=== PATIENT | male | born 1965 | race Two or more races ===

== ENCOUNTER 2019-11-27 07:37 | Inpatient (IN) | payer MEDICARE, OTHER ==
[~2019-11-27] VITALS: Ht 172.7 cm; Wt 113.4 kg
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
[2019-11-28 08:00] VITALS: BP 137/79
[2019-11-28] MEDS ORDERED: MAGNESIUM HYDROXIDE 30 ML UDC PO PRN ×2 (08:30)
[2019-11-28] MEDS ORDERED: BLOOD SUGAR DIAGNOSTIC 1 EACH STRIP IN ONE ×2 (08:30)
[2019-11-28] MEDS ORDERED: MAG HYDROX/AL HYDROX/SIMETH 30 ML UDC PO PRN ×2 (08:30)
[2019-11-28] MEDS ORDERED: ACETAMINOPHEN 325 MG TABLET PO PRN ×2 (08:30)
[2019-11-28] MEDS ORDERED: QUET200T PO (08:38)
[2019-11-28] MEDS ORDERED: QUET25TA PO (08:38)
[2019-11-28] MEDS ORDERED: CARV6.25 PO (08:38)
[2019-11-28] MEDS ORDERED: FLUT200B IH (08:38)
[2019-11-28] MEDS ORDERED: TEMA15CA PO (08:38)
[2019-11-28] MEDS ORDERED: TORS20TA3 PO (08:38)
[2019-11-28] MEDS ORDERED: SPIR25TA6 PO (08:38)
[2019-11-28] MEDS ORDERED: ALBU2.5V13 IH (08:38)
[2019-11-28] MEDS ORDERED: FLUT10.62 IH (08:38)
[2019-11-28] MEDS: OLANZAPINE 5 MG TABLET PO SCH (10:30)
[2019-11-28 16:00] VITALS: BP 158/82
[2019-11-28] MEDS ORDERED: ALBUTEROL FS 2.5 MG/0.5 ML VIAL.NEB IH PRN (17:30)
[2019-11-28] MEDS: LORAZEPAM 0.5 MG TABLET PO PRN ×2 (18:49→21:31)
--- NOTE | 2019-11-28 18:49 | NUR ---
RN NOTE: ANXIETY PT C/O INCREASING ANXIEYT. MEDICATED WITH ATIVAN 0.5 MG PO PRN
[2019-11-28 19:36] VITALS: BP 159/96
[2019-11-28] MEDS: TEMAZEPAM 7.5 MG CAPSULE PO PRN (22:31)
[2019-11-29 08:00] VITALS: BP 153/99
[2019-11-29 08:34] LABS: ALBUMIN 3.6 g/dL (3.4-5.0); BILIRUBIN,TOTAL 0.5 mg/dL (0.2-1.0); CALCIUM, SERUM 8.7 mg/dL (8.5-10.1); CREATININE 0.5 mg/dL (0.6-1.3); POTASSIUM 3.8 mmol/L (3.5-5.1)
[2019-11-29] MEDS: SPIRONOLACTONE 25 MG TABLET PO SCH (08:47)
[2019-11-29] MEDS: FLUTICASONE/VILANTEROL 1 EACH BLST.W.DEV IH SCH (08:47)
[2019-11-29] MEDS: CARVEDILOL 6.25 MG TABLET PO SCH ×2 (08:47→16:19)
[2019-11-29] MEDS: TORSEMIDE 20 MG TABLET PO SCH (08:48)
[2019-11-29 09:24] LABS: CHOLESTEROL 104 mg/dL (<200); HDL CHOLESTEROL 36 mg/dL (40-60); LDL 57 mg/dL (0-99); TRIGLYCERIDES 62 mg/dL (30-150)
--- NOTE | 2019-11-29 11:00 | NUR ---
Family Contact: SW called the pts ex , [place] ([phone]), and left a voicemail stating that the SW would like to discuss the pts treatment.
[2019-11-29] MEDS: OLANZAPINE 5 MG TABLET PO SCH (11:18)
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
--- NOTE | 2019-11-29 12:28 | NUR ---
Initial Discharge Plan: Pt currently resides in his home located at [address] [place] [address]; ([phone]). Per pt, he would like to return to his home to pack before moving. MAKI will work with the MD and the pt regarding appropriate discharge planning. SW will form a safe and proper discharge.
[2019-11-29] MEDS: LORAZEPAM 0.5 MG TABLET PO PRN ×2 (13:02→19:56)
[2019-11-29 16:00] VITALS: BP 139/84
--- NOTE | 2019-11-29 18:33 | NUR ---
RN Closing note Patient sitting on bed, infante no appears anxiety or restlessness. Pt took all scheduled medications with compliance during day shift. Skin is warm ot touch, respiratory even and uncolored on room air, no distress observed. Kept bed in locked, side rails up x 2, will endorse casino shift manager and continue to monitor for safety.
--- NOTE | 2019-11-29 19:58 | NUR ---
RN NOTE: PT REQUESTED FOR ATIVAN FOR ANXIETY. PT WAS GETTING AGITATED, RESTLESS AND DISORGANIZED. ATIVAN 0.5MG 1 TAB GIVEN PO PRN ORDERED AT 1956. WILL CONTINUE TO MONITOR.
[2019-11-29 20:00] VITALS: BP 111/58
[2019-11-29] MEDS ORDERED: OLANZAPINE 10 MG TABLET PO SCH (20:00)
[2019-11-29] MEDS: TEMAZEPAM 7.5 MG CAPSULE PO PRN (21:27)
--- NOTE | 2019-11-30 06:31 | NUR ---
GPS RN CLOSING NOTES: PT IS SLEEPING ON BED, RESPIRATION EVEN AND UNLABORED WITH EQUAL RISE AND FALL OF THE CHEST. ALL CARE NEEDS, TREATMENT AND MEDICATIONS ADMINISTERED ANTICIPATED PER ORDER. PT IS MED COMPLIANT. THIS SHIFT PT WAS GIVEN ATIVAN 0.5MG 1 TAB AND RESTORIL 7.5MG 1 TAB PO PRN ORDERED. SAFETY PRECAUTION TAKEN. BED IN LOWEST LOCKED POSITION, SIDE RAILS UPX2, CALL LIGHT WITHIN REACH. WILL CONTINUE TO MONITOR [id number] AND Q1HR PER GPS PROTOCOL FOR SAFETY, MOOD AND BEHAVIOR AND ENDORSE TO AM SHIFT.
[2019-11-30 08:00] VITALS: BP 131/78
--- NOTE | 2019-11-30 08:40 | NUR ---
GIVEN ATIVAN FOR NERVES.
[2019-11-30] MEDS: FLUTICASONE/VILANTEROL 1 EACH BLST.W.DEV IH SCH (08:45)
[2019-11-30] MEDS: TORSEMIDE 20 MG TABLET PO SCH (08:46)
[2019-11-30] MEDS: SPIRONOLACTONE 25 MG TABLET PO SCH (08:48)
[2019-11-30] MEDS: CARVEDILOL 6.25 MG TABLET PO SCH ×2 (08:48→18:33)
[2019-11-30] MEDS: LORAZEPAM 0.5 MG TABLET PO PRN ×2 (08:49→15:26)
[2019-11-30] MEDS ORDERED: OLANZAPINE 5 MG TABLET PO SCH (09:00)
--- NOTE | 2019-11-30 12:41 | NUR ---
Family Contact: Pts ex , Ca ([phone]), called the SW and stated that the pt cannot return to their home and that she is going to pack of his belongings into an RV that she will park somewhere for the pt to live in off of their property.
[2019-11-30] MEDS: OLANZAPINE 5 MG TABLET PO SCH (14:06)
--- NOTE | 2019-11-30 15:27 | NUR ---
RN-CO: ATIVAN 0.5 MG PO FOR AGITATION.
[2019-11-30 16:00] VITALS: BP 132/74
--- NOTE | 2019-11-30 18:33 | NUR ---
RN-CO:ASKED DR FIERRO TO INCREASE THE ATIVAN ORDER FROM 0.5 MG TO 1 MG . PATIENT IS 250 LBS NAD 5'9. 0.5 IS INSUFFICIENT TO CONTROL HIS AGITATION.
[2019-11-30 19:54] VITALS: BP 135/65
[2019-11-30 20:00] VITALS: BP 135/65
[2019-11-30] MEDS ORDERED: OLANZAPINE 10 MG TABLET PO SCH (20:00)
[2019-11-30] MEDS: OLANZAPINE 10 MG TABLET PO SCH (20:19)
[2019-11-30] MEDS: LORAZEPAM 1 MG TABLET PO PRN (22:01)
--- NOTE | 2019-11-30 22:03 | NUR ---
GPS RN NOTE: ANXIETY PATIENT VERBALIZED THAT HE IS ANXIOUS, RESTLESS, AGITATED, AGGRESSIVE & REQUESTED TO GET ATIVAN. PRN ATIVAN 1 MG 1 TAB PO GIVEN ORDERED. WILL CONTINUE TO MONITOR FOR EFFECTIVENESS.
[2019-12-01 08:00] VITALS: BP 140/79
[2019-12-01] MEDS: OLANZAPINE 5 MG TABLET PO SCH ×2 (08:40→12:12)
[2019-12-01] MEDS: CARVEDILOL 6.25 MG TABLET PO SCH ×2 (08:40→16:03)
[2019-12-01] MEDS: SPIRONOLACTONE 25 MG TABLET PO SCH (08:40)
[2019-12-01] MEDS: FLUTICASONE/VILANTEROL 1 EACH BLST.W.DEV IH SCH (08:41)
[2019-12-01] MEDS: TORSEMIDE 20 MG TABLET PO SCH (08:41)
[2019-12-01] MEDS: LORAZEPAM 1 MG TABLET PO PRN ×2 (09:52→21:13)
--- NOTE | 2019-12-01 09:53 | NUR ---
GPS/RN-NOTES NOTED PATIENT PACING IN AND OUT THE ROOM,TALKING ,MUMBLING TO SELF,GUARDED EASILY IRRITABLE WHEN APPROACH. OFFERED ATIVAN 1MG P.O GIVEN PRN ORDER. WILL CONT. MONITORING FOR SAFETY AND BEHAVIOR.
--- NOTE | 2019-12-01 11:15 | NUR ---
GPS/RN-NOTES PATIENT IN THE DAY ROOM WATCHING TV,CALM NO ACUTE DISTRESS NOTED.
[2019-12-01 16:00] VITALS: BP 114/66
[2019-12-01 19:33] VITALS: BP 120/69
[2019-12-01] MEDS: OLANZAPINE 10 MG TABLET PO SCH (19:59)
--- NOTE | 2019-12-01 21:15 | NUR ---
GPS RN NOTES: PATIENT COMPLAINED OF BEING ANXIOUS. REQUESTED OR ATIVAN MEDICATION. BP RECHECKED 148/87 HR-89. ATIVAN 1 MG GIVEN PRN ORDER. WILL NOTED EFFICACY OF MEDICATION.
[2019-12-01] MEDS: TEMAZEPAM 7.5 MG CAPSULE PO PRN (22:27)
[2019-12-01] MEDS: MINERAL OIL/PETROLATUM,WHITE 120 GM JAR TP PRN (22:29)
[2019-12-02 08:00] VITALS: BP 145/69
[2019-12-02] MEDS: OLANZAPINE 5 MG TABLET PO SCH ×2 (08:44→12:21)
[2019-12-02] MEDS: SPIRONOLACTONE 25 MG TABLET PO SCH (08:44)
[2019-12-02] MEDS: CARVEDILOL 6.25 MG TABLET PO SCH ×2 (08:45→17:03)
[2019-12-02] MEDS: FLUTICASONE/VILANTEROL 1 EACH BLST.W.DEV IH SCH (08:45)
[2019-12-02] MEDS: TORSEMIDE 20 MG TABLET PO SCH (08:46)
[2019-12-02] MEDS: MINERAL OIL/PETROLATUM,WHITE 120 GM JAR TP PRN (09:30)
[2019-12-02] MEDS: NICOTINE PATCH (21MG) 21 MG PATCH.TD24 TD SCH (09:32)
--- NOTE | 2019-12-02 11:12 | NUR ---
Family Contact: SW called the pts ex , [place] ([phone]), and discussed SNF placement but the pts stated that she feels the pt can take care of himself appropriately and will do better living in his RV than in a nursing facility.
[2019-12-02] MEDS: LORAZEPAM 1 MG TABLET PO PRN ×2 (11:45→18:58)
--- NOTE | 2019-12-02 11:45 | NUR ---
RN NOTE- PT AGITATED AND RESTLESS. PT RESPONDING TO INTERNAL STIMULUS AND PARANOID. ATIVAN 1 MG GIVEN AT THIS TIME.
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
[2019-12-02] MEDS ORDERED: OLANZAPINE 5 MG TABLET PO ONE (14:30)
[2019-12-02 16:07] VITALS: BP 112/90
--- NOTE | 2019-12-02 18:58 | NUR ---
GPS/RN-NOTES PATIENT PACING IN THE HALLWAY,MUMBLING AND TALKING TO SELF,REQUESTING FOR ATIVAN. STATED" ATIVAN HELPS ME". ATIVAN 1MG P.O GIVEN PRN ORDER. WILL ENDORSE TO INCOMING NURSE TO CONTINUE MONITORING FOR SAFETY AND BEHAVIOR AND CONTINUITY OF CARE.
[2019-12-02 20:00] VITALS: BP 148/75
--- NOTE | 2019-12-02 20:00 | NUR ---
GPS RN NOTE RECEIVED PATIENT AMBULATING IN & OUT OF HIS ROOM, STEADY, A & O X 2-3, FORGETFUL, DISORGANIZED, DELUSIONAL, UNPREDICTABLE, ANXIOUS, RESTLESS, NEEDY, DEMANDING. PARANOID. DENIES SI/HI AT THIS TIME. PATIENT NOTED TALKING TO HIMSELF, WHEN APPROACHED, PT. STATED," I AM MEDITATING." PATIENT SITS ON THE FLOOR SAYING THAT HE WANTS TO MEDITATE SITTING ON THE FLOOR. REDIRECTED PATIENT TO BED. SNACKS & FLUIDS PROVIDED & TOLERATED WELL. NO ACUTE DISTRESS NOTED. ENVIRONMENTAL SAFETY CHECKS DONE. BED IN LOW LOCKED POSITION. WILL CONTINUE TO MONITOR Q 15 MIN. FOR SAFETY, MOOD & BEHAVIOR.
[2019-12-02 20:20] VITALS: BP 148/75
[2019-12-02] MEDS: OLANZAPINE 10 MG TABLET PO SCH (20:29)
[2019-12-02 22:15] VITALS: BP 141/78
[2019-12-02] MEDS: TEMAZEPAM 7.5 MG CAPSULE PO PRN (22:21)
--- NOTE | 2019-12-02 22:23 | NUR ---
GPS RN NOTE: INSOMNIA PATIENT VERBALIZED THAT HE IS UNABLE TO SLEEP & WANTED TO TAKE RESTORIL. PRN RESTORIL 7.5 MG 1 CAP PO GIVEN. WILL CONTINUE TO MONITOR FOR EFFECTIVENESS.
[2019-12-03 08:00] VITALS: BP 140/88
[2019-12-03] MEDS: NICOTINE PATCH (21MG) 21 MG PATCH.TD24 TD SCH (08:18)
[2019-12-03] MEDS: SPIRONOLACTONE 25 MG TABLET PO SCH (08:19)
[2019-12-03] MEDS: OLANZAPINE 5 MG TABLET PO SCH ×2 (08:19→12:12)
[2019-12-03] MEDS: CARVEDILOL 6.25 MG TABLET PO SCH ×2 (08:19→16:45)
[2019-12-03] MEDS: FLUTICASONE/VILANTEROL 1 EACH BLST.W.DEV IH SCH (08:23)
[2019-12-03] MEDS: TORSEMIDE 20 MG TABLET PO SCH (08:23)
[2019-12-03] MEDS: LORAZEPAM 1 MG TABLET PO PRN ×2 (09:32→20:50)
--- NOTE | 2019-12-03 09:34 | NUR ---
GPS/RN-NOTES PATIENT APPROACH THE PERSONAL CARE HOME ADMINISTRATOR AND REQUESTING FOR ATIVAN STATED" I NEED ATIVAN FOR MY ANXIETY". ATIVAN 1MG P.O GIVEN PRN ORDER. WILL CONT. MONITORING FOR SAFETY AND BEHAVIOR.
--- NOTE | 2019-12-03 10:35 | NUR ---
GPS/RN-NOTES PATIENT IN THE DAY ROOM READING MAGAZINE,CALM,NO ACUTE DISTRESS NOTED.
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
[2019-12-03 16:00] VITALS: BP 135/72
[2019-12-03 20:00] VITALS: BP 129/82
[2019-12-03] MEDS: OLANZAPINE 10 MG TABLET PO SCH (20:13)
--- NOTE | 2019-12-03 20:52 | NUR ---
GPS-RN NOTE: ANXIETY PATIENT C/O FEELING ANXIOUS AND REQUESTING FOR ATIVAN. ADMINISTERED ATIVAN 1MG PO ORDERED. WILL CONTINUE TO MONITOR FOR SAFETY AND BEHAVIOR.
[2019-12-03] MEDS: TEMAZEPAM 7.5 MG CAPSULE PO PRN (23:16)
--- NOTE | 2019-12-03 23:16 | NUR ---
GPS RN NOTE: INSOMNIA PATIENT C/O UNABLE TO SLEEP. ADMINISTERED RESTORIL 7.5 MG 1 CAP PO GIVEN. WILL CONTINUE TO MONITOR FOR EFFECTIVENESS.
[2019-12-04] MEDS: LORAZEPAM 1 MG TABLET PO PRN ×2 (07:14→16:59)
[2019-12-04 08:00] VITALS: BP 141/70
[2019-12-04] MEDS: NICOTINE PATCH (21MG) 21 MG PATCH.TD24 TD SCH (09:09)
[2019-12-04] MEDS: SPIRONOLACTONE 25 MG TABLET PO SCH (09:10)
[2019-12-04] MEDS: CARVEDILOL 6.25 MG TABLET PO SCH ×2 (09:10→17:00)
[2019-12-04] MEDS: OLANZAPINE 5 MG TABLET PO SCH ×2 (09:10→12:06)
[2019-12-04] MEDS: TORSEMIDE 20 MG TABLET PO SCH (09:11)
[2019-12-04] MEDS: FLUTICASONE/VILANTEROL 1 EACH BLST.W.DEV IH SCH (09:44)
[2019-12-04 16:00] VITALS: BP 142/84
--- NOTE | 2019-12-04 17:00 | NUR ---
GPS-RN NOTE: ANXIETY PATIENT C/O FEELING ANXIOUS AND REQUESTING FOR ATIVAN. ADMINISTERED ATIVAN 1MG PO ORDERED. WILL CONTINUE TO MONITOR FOR SAFETY AND BEHAVIOR.
[2019-12-04 20:25] VITALS: BP 135/62
[2019-12-04] MEDS: OLANZAPINE 10 MG TABLET PO SCH (21:09)
[2019-12-04] MEDS: TEMAZEPAM 7.5 MG CAPSULE PO PRN (21:24)
--- NOTE | 2019-12-04 21:24 | NUR ---
GPS RN NOTE: INSOMNIA PATIENT C/O UNABLE TO SLEEP. ADMINISTERED RESTORIL 7.5 MG 1 CAP PO GIVEN. WILL CONTINUE TO MONITOR FOR EFFECTIVENESS.
[2019-12-05] MEDS: LORAZEPAM 1 MG TABLET PO PRN ×3 (02:48→18:31)
--- NOTE | 2019-12-05 02:49 | NUR ---
GPS-RN NOTE: ANXIETY PATIENT C/O FEELING ANXIOUS AND REQUESTING FOR ATIVAN. ADMINISTERED ATIVAN 1MG PO ORDERED. WILL CONTINUE TO MONITOR FOR SAFETY AND BEHAVIOR
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
[2019-12-05] MEDS ORDERED: OLANZAPINE 10 MG VIAL IM ONE (06:00)
[2019-12-05 08:00] VITALS: BP 145/86
[2019-12-05] MEDS: TORSEMIDE 20 MG TABLET PO SCH (08:00)
[2019-12-05] MEDS: OLANZAPINE 5 MG TABLET PO SCH ×2 (08:00→12:06)
[2019-12-05] MEDS: NICOTINE PATCH (21MG) 21 MG PATCH.TD24 TD SCH (08:00)
[2019-12-05] MEDS: SPIRONOLACTONE 25 MG TABLET PO SCH (08:00)
[2019-12-05] MEDS: FLUTICASONE/VILANTEROL 1 EACH BLST.W.DEV IH SCH (08:01)
[2019-12-05] MEDS: CARVEDILOL 6.25 MG TABLET PO SCH ×2 (08:01→16:48)
--- NOTE | 2019-12-05 09:00 | NUR ---
RN NOTE- PT AGITATED THOUGH CALMER. ATIVAN AND MEDS GIVEN COMPLIANT . EZRA WALDEN. DIRECTABLE PT DELUSIONAL AND PSYCHOTIC
--- NOTE | 2019-12-05 09:21 | NUR ---
RN NOTE- AGITATION, RESTLESSNESS. REQUESTING PRN. ATIVAN 1 MG GIVEN
--- NOTE | 2019-12-05 11:10 | NUR ---
Family Contact: SW called the pts ex , Ca ([phone]), and left a voicemail stating that the SW does not have any information regarding the pts discharge date and that she will contact her as soon as she does.
[2019-12-05] MEDS: risperiDONE 1 MG TABLET PO SCH ×2 (13:58→16:48)
[2019-12-05] MEDS: DIVALPROEX SODIUM 250 MG TABLET.DR PO SCH ×2 (13:58→16:48)
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
[2019-12-05 16:00] VITALS: BP 150/90
--- NOTE | 2019-12-05 18:31 | NUR ---
RN NOTE- AGITATION REQUESTING PRN. ATIVAN 1 MG GIVEN
[2019-12-05] MEDS: OLANZAPINE 10 MG TABLET PO SCH (20:21)
[2019-12-05 20:24] VITALS: BP 158/97
[2019-12-05] MEDS: TEMAZEPAM 7.5 MG CAPSULE PO PRN (22:30)
[2019-12-06] MEDS: LORAZEPAM 1 MG TABLET PO PRN ×4 (00:50→22:41)
[2019-12-06] MEDS: OLANZAPINE 5 MG TABLET PO SCH ×3 (07:36→16:32)
--- NOTE | 2019-12-06 07:36 | NUR ---
RN NOTE- AGITATION/ PT C/O ANXIETY RESTLESSNESS. ATIVAN 1 MG GIVEN
[2019-12-06 08:00] VITALS: BP 151/88
[2019-12-06] MEDS: risperiDONE 1 MG TABLET PO SCH (08:15)
[2019-12-06] MEDS: DIVALPROEX SODIUM 250 MG TABLET.DR PO SCH ×2 (08:15→12:48)
[2019-12-06] MEDS: SPIRONOLACTONE 25 MG TABLET PO SCH (08:15)
[2019-12-06] MEDS: CARVEDILOL 6.25 MG TABLET PO SCH ×2 (08:16→16:32)
[2019-12-06] MEDS: TORSEMIDE 20 MG TABLET PO SCH (08:21)
[2019-12-06] MEDS: MINERAL OIL/PETROLATUM,WHITE 120 GM JAR TP PRN (08:24)
[2019-12-06] MEDS: FLUTICASONE/VILANTEROL 1 EACH BLST.W.DEV IH SCH (08:24)
[2019-12-06] MEDS: NICOTINE PATCH (21MG) 21 MG PATCH.TD24 TD SCH (08:57)
--- NOTE | 2019-12-06 09:00 | NUR ---
RN NOTE- MED COMPLIANT, INTERACTIVE W STAFF AND PEERS, CALM DIRECTABLE AT THIS TIME NO BEHAVIORAL ISSUES THUS FAR. PO INTAKE GOOD DENIES SI HI AH VH
--- NOTE | 2019-12-06 11:53 | NUR ---
Individual Intervention with the Pt: SW spoke to the pt and attempted to discuss his discharge planning but the pt appeared to be rambling and was making nonsensical statements. Pt was jumping from one topic to another mid sentence and his thought process was not linear. Pt appeared to be disorganized and could not understand why he still needed to be in the hospital and why he cannot be discharged to his RV at this time.
[2019-12-06] MEDS ORDERED: risperiDONE 1 MG TABLET PO SCH (12:00)
--- NOTE | 2019-12-06 15:37 | NUR ---
RN NOTE- PT W ANXIETY RESTLESSNESS. ATIVAN 1 MG GIVEN
[2019-12-06 16:00] VITALS: BP 140/74
[2019-12-06] MEDS: DIVALPROEX SODIUM 500 MG TABLET.DR PO SCH (16:32)
[2019-12-06 20:01] VITALS: BP 154/76
[2019-12-06] MEDS: OLANZAPINE 10 MG TABLET PO SCH (20:13)
[2019-12-06] MEDS: TEMAZEPAM 7.5 MG CAPSULE PO PRN (21:38)
[2019-12-07 08:00] VITALS: BP 133/95
[2019-12-07] MEDS: SPIRONOLACTONE 25 MG TABLET PO SCH (09:04)
[2019-12-07] MEDS: OLANZAPINE 5 MG TABLET PO SCH ×3 (09:04→17:42)
[2019-12-07] MEDS: DIVALPROEX SODIUM 250 MG TABLET.DR PO SCH ×2 (09:04→13:58)
[2019-12-07] MEDS: LORAZEPAM 1 MG TABLET PO PRN ×2 (09:04→15:14)
[2019-12-07] MEDS: TORSEMIDE 20 MG TABLET PO SCH (09:08)
[2019-12-07] MEDS: FLUTICASONE/VILANTEROL 1 EACH BLST.W.DEV IH SCH (09:08)
[2019-12-07] MEDS: CARVEDILOL 6.25 MG TABLET PO SCH ×2 (09:09→17:43)
--- NOTE | 2019-12-07 11:20 | NUR ---
SNF Referral: MAKI faxed a referral to [facility] with attention to Conchis to the fax number: [phone].
[2019-12-07] MEDS: NICOTINE PATCH (21MG) 21 MG PATCH.TD24 TD SCH (13:58)
[2019-12-07 16:00] VITALS: BP 121/77
[2019-12-07] MEDS: DIVALPROEX SODIUM 500 MG TABLET.DR PO SCH (17:42)
[2019-12-07 19:56] VITALS: BP 138/80
[2019-12-07] MEDS: OLANZAPINE 10 MG TABLET PO SCH (20:11)
[2019-12-08 08:00] VITALS: BP 143/74
[2019-12-08] MEDS: TORSEMIDE 20 MG TABLET PO SCH (08:43)
[2019-12-08] MEDS: DIVALPROEX SODIUM 250 MG TABLET.DR PO SCH ×2 (08:44→12:26)
[2019-12-08] MEDS: SPIRONOLACTONE 25 MG TABLET PO SCH (08:44)
[2019-12-08] MEDS: CARVEDILOL 6.25 MG TABLET PO SCH ×2 (08:45→16:38)
[2019-12-08] MEDS: OLANZAPINE 5 MG TABLET PO SCH ×3 (08:47→16:39)
[2019-12-08] MEDS: FLUTICASONE/VILANTEROL 1 EACH BLST.W.DEV IH SCH (09:31)
[2019-12-08] MEDS: NICOTINE PATCH (21MG) 21 MG PATCH.TD24 TD SCH (10:00)
--- NOTE | 2019-12-08 11:21 | NUR ---
SNF Contact: Conchis ([phone]) from [facility] contacted the SW and stated that the pt was accepted to their facility. SW stated that the pt will be discharged on Thursday.
[2019-12-08] MEDS: LORAZEPAM 1 MG TABLET PO PRN ×2 (11:29→16:39)
--- NOTE | 2019-12-08 11:30 | NUR ---
GPS/RN NOTES PATIENT COMPLAINED OF FEELING ANXIOUS, PATIENT ASKED FOR ATIVAN 1MG 1 TAB P.O. AND WAS GIVEN. WILL CONTINUE TO MONITOR.
[2019-12-08 16:00] VITALS: BP 100/59
[2019-12-08] MEDS: DIVALPROEX SODIUM 500 MG TABLET.DR PO SCH (16:39)
--- NOTE | 2019-12-08 16:41 | NUR ---
GPS/RN NOTES PATIENT COMPLAINED OF FEELING ANXIOUS, PATIENT ASKED FOR ATIVAN 1MG 1 TAB P.O. AND WAS GIVEN. BP 100/59 HR 70 CARVEDILOL 6.25 MG 1 TAB P.O. WAS WITH HELD. WILL CONTINUE TO MONITOR.
[2019-12-08] MEDS: OLANZAPINE 10 MG TABLET PO SCH (20:06)
[2019-12-08 20:12] VITALS: BP 126/79
[2019-12-08] MEDS: TEMAZEPAM 7.5 MG CAPSULE PO PRN (21:22)
--- NOTE | 2019-12-08 21:22 | NUR ---
GPS RN NOTES: INSOMNIA PATIENT COMPLAINED OF NOT BEING ABLE TO SLEEP. REQUESTED FOR SLEEPING MEDICATION- RESTORIL 7.5 MG GIVEN PRN ORDER. WILL MONITOR PATIENT'S SLEEPING PATTERN.
--- NOTE | 2019-12-08 23:47 | NUR ---
GPS RN NOTES: PATIENT WOKE UP FROM HIS SLEVE AND COMPLAINED OF INDIGESTION- REQUESTED FOR MAALOX MEDICATION- ADMINISTERED PRN ORDER. WILL MONITOR PATIENT INDIGESTION ISSUES.
[2019-12-09 06:42] LABS: BASOPHILS % (AUTO) 0.5 % (0.0-2.0); EOSINOPHILS % (AUTO) 6.4 % (0.0-6.0); HEMATOCRIT 43 % (39-51); LYMPHOCYTES # (AUTO) 1.6 /CMM (0.8-4.8); LYMPHOCYTES % (AUTO) 18.2 % (20.0-44.0); MEAN CORPUSCULAR HGB CONC 35 g/dl (31.0-36.0); MEAN CORPUSCULAR VOLUME 87 fL (80-96); MONOCYTES # (AUTO) 0.5 /CMM (0.1-1.30); NEUTROPHILS % (AUTO) 68.9 % (43.0-81.0); PLATELET COUNT (AUTO) 131 /CMM (150-450); RED BLOOD CELL COUNT(AUTO) 4.95 MIL/uL (4.5-6.0); WHITE BLOOD COUNT (AUTO) 8.7 K/uL (4.3-11.0)
[2019-12-09 07:14] LABS: ALBUMIN 3.5 g/dL (3.4-5.0); BILIRUBIN,TOTAL 0.7 mg/dL (0.2-1.0); CALCIUM, SERUM 8.4 mg/dL (8.5-10.1); CREATININE 0.6 mg/dL (0.6-1.3); POTASSIUM 3.5 mmol/L (3.5-5.1)
[2019-12-09 08:00] VITALS: BP 117/69
[2019-12-09] MEDS: TORSEMIDE 20 MG TABLET PO SCH (08:14)
[2019-12-09] MEDS: OLANZAPINE 5 MG TABLET PO SCH ×3 (08:14→16:04)
[2019-12-09] MEDS: DIVALPROEX SODIUM 250 MG TABLET.DR PO SCH ×3 (08:14→13:00)
[2019-12-09] MEDS: SPIRONOLACTONE 25 MG TABLET PO SCH (08:14)
[2019-12-09] MEDS: FLUTICASONE/VILANTEROL 1 EACH BLST.W.DEV IH SCH (08:15)
[2019-12-09] MEDS: CARVEDILOL 6.25 MG TABLET PO SCH ×2 (08:16→16:02)
[2019-12-09] MEDS: NICOTINE PATCH (21MG) 21 MG PATCH.TD24 TD SCH ×2 (08:16→09:18)
[2019-12-09] MEDS: LORAZEPAM 1 MG TABLET PO PRN ×2 (08:46→16:02)
--- NOTE | 2019-12-09 15:23 | NUR ---
Family Contact: SW called the pts ex , Ca ([phone]), and left a voicemail that stated that the pt is going to be discharged to [facility].
[2019-12-09 16:00] VITALS: BP 138/76
[2019-12-09] MEDS: DIVALPROEX SODIUM 500 MG TABLET.DR PO SCH (16:02)
[2019-12-09] MEDS: OLANZAPINE 10 MG TABLET PO SCH (20:12)
[2019-12-09 20:16] VITALS: BP 127/68
[2019-12-09] MEDS: TEMAZEPAM 7.5 MG CAPSULE PO PRN (21:22)
--- NOTE | 2019-12-09 21:22 | NUR ---
GPS RN NOTE: INSOMNIA PATIENT C/O UNABLE TO SLEEP. ADMINISTERED RESTORIL 7.5 MG 1 CAP PO GIVEN. WILL CONTINUE TO MONITOR FOR EFFECTIVENESS.
[2019-12-10 08:00] VITALS: BP 105/56
[2019-12-10] MEDS: SPIRONOLACTONE 25 MG TABLET PO SCH (09:00)
[2019-12-10] MEDS: NICOTINE PATCH (21MG) 21 MG PATCH.TD24 TD SCH (09:11)
[2019-12-10] MEDS: FLUTICASONE/VILANTEROL 1 EACH BLST.W.DEV IH SCH (09:11)
[2019-12-10] MEDS: CARVEDILOL 6.25 MG TABLET PO SCH ×2 (09:12→17:26)
[2019-12-10] MEDS: OLANZAPINE 5 MG TABLET PO SCH ×3 (09:12→17:26)
[2019-12-10] MEDS: DIVALPROEX SODIUM 250 MG TABLET.DR PO SCH ×2 (09:12→14:00)
[2019-12-10] MEDS: LORAZEPAM 1 MG TABLET PO PRN ×2 (10:00→16:10)
--- NOTE | 2019-12-10 10:00 | NUR ---
GIVEN ATIVAN 1 MG PO FOR RESTLESSNESS.
[2019-12-10] MEDS: TORSEMIDE 20 MG TABLET PO SCH (11:42)
[2019-12-10 16:00] VITALS: BP 119/69
--- NOTE | 2019-12-10 16:15 | NUR ---
given ativan for nerves.
[2019-12-10] MEDS: DIVALPROEX SODIUM 500 MG TABLET.DR PO SCH (17:33)
[2019-12-10 20:15] VITALS: BP 118/76
[2019-12-10] MEDS: OLANZAPINE 10 MG TABLET PO SCH (20:40)
[2019-12-10] MEDS: TEMAZEPAM 7.5 MG CAPSULE PO PRN (22:19)
--- NOTE | 2019-12-10 22:20 | NUR ---
GPS RN NOTE: INSOMNIA PATIENT VERBALIZED THAT HE IS UNABLE TO SLEEP & REQUESTED TO TAKE SLEEPING MEDICINE. PRN RESTORIL 7.5 MG 1 CAP PO GIVEN.
[2019-12-11 08:00] VITALS: BP 132/74
[2019-12-11] MEDS: DIVALPROEX SODIUM 250 MG TABLET.DR PO SCH ×2 (09:01→13:23)
[2019-12-11] MEDS: CARVEDILOL 6.25 MG TABLET PO SCH ×2 (09:01→17:33)
[2019-12-11] MEDS: OLANZAPINE 5 MG TABLET PO SCH ×3 (09:02→17:34)
[2019-12-11] MEDS: SPIRONOLACTONE 25 MG TABLET PO SCH (09:02)
[2019-12-11] MEDS: LORAZEPAM 1 MG TABLET PO PRN ×2 (09:02→19:51)
[2019-12-11] MEDS: TORSEMIDE 20 MG TABLET PO SCH (09:02)
--- NOTE | 2019-12-11 09:02 | NUR ---
RN NOTE:PATIENT MEDICATED WITH ATIVAN 1MG FOR ANXIETY ,WILL CONTINUE TO MONITOR.
[2019-12-11] MEDS: NICOTINE PATCH (21MG) 21 MG PATCH.TD24 TD SCH (09:03)
[2019-12-11] MEDS: FLUTICASONE/VILANTEROL 1 EACH BLST.W.DEV IH SCH (09:06)
[2019-12-11 16:00] VITALS: BP 136/76
[2019-12-11] MEDS: DIVALPROEX SODIUM 500 MG TABLET.DR PO SCH (17:34)
--- NOTE | 2019-12-11 19:55 | NUR ---
GPS RN NOTE: ANXIETY PATIENT VERBALIZED THAT HE IS FEELING VERY ANXIOUS & RESTLESS & WANTED TO TAKE ATIVAN ONLY AT THIS TIME. PRN ATIVAN 1 MG GIVEN. WILL MONITOR CLOSELY.
[2019-12-11 20:07] VITALS: BP 137/79
[2019-12-11] MEDS: OLANZAPINE 10 MG TABLET PO SCH (21:04)
[2019-12-11] MEDS: TEMAZEPAM 7.5 MG CAPSULE PO PRN (22:07)
--- NOTE | 2019-12-11 22:07 | NUR ---
GPS RN NOTE: INSOMNIA PATIENT VERBALIZED THAT HE IS UNABLE TO SLEEP & WANTED TO TAKE SLEEPING MEDICINE. PRN RESTORIL 7.5 MG 1 CAP PO GIVEN.
--- NOTE | 2019-12-12 05:58 | NUR ---
GPS RN NOTE PATIENT SLEPT WELL AFTER RESTORIL WAS GIVEN TO THE PATIENT.
[2019-12-12 06:55] LABS: BASOPHILS % (AUTO) 0.7 % (0.0-2.0); EOSINOPHILS % (AUTO) 13.8 % (0.0-6.0); HEMATOCRIT 41 % (39-51); HEMOGLOBIN 14.7 g/dL (13.5-17.5); LYMPHOCYTES # (AUTO) 1.6 /CMM (0.8-4.8); LYMPHOCYTES % (AUTO) 25.1 % (20.0-44.0); MEAN CORPUSCULAR HGB CONC 36 g/dl (31.0-36.0); MEAN CORPUSCULAR VOLUME 85 fL (80-96); MONOCYTES # (AUTO) 0.6 /CMM (0.1-1.30); MONOCYTES % (AUTO) 9.6 % (2.0-12.0); NEUTROPHILS # (AUTO) 3.2 /CMM (1.8-8.9); NEUTROPHILS % (AUTO) 50.8 % (43.0-81.0); PLATELET COUNT (AUTO) 152 /CMM (150-450); RED BLOOD CELL COUNT(AUTO) 4.83 MIL/uL (4.5-6.0); WHITE BLOOD COUNT (AUTO) 6.2 K/uL (4.3-11.0)
[2019-12-12 07:08] LABS: ALBUMIN 3.4 g/dL (3.4-5.0); BILIRUBIN,TOTAL 0.7 mg/dL (0.2-1.0); CALCIUM, SERUM 8.4 mg/dL (8.5-10.1); CREATININE 0.6 mg/dL (0.6-1.3); POTASSIUM 3.3 mmol/L (3.5-5.1); TOTAL PROTEIN, SERUM 7.1 g/dL (6.4-8.2)
[2019-12-12 08:00] VITALS: BP 121/73
[2019-12-12] MEDS: OLANZAPINE 5 MG TABLET PO SCH (08:15)
[2019-12-12] MEDS: NICOTINE PATCH (21MG) 21 MG PATCH.TD24 TD SCH (08:15)
[2019-12-12] MEDS: TORSEMIDE 20 MG TABLET PO SCH (08:15)
[2019-12-12] MEDS: SPIRONOLACTONE 25 MG TABLET PO SCH (08:15)
[2019-12-12 08:16] VITALS: BP 121/73
[2019-12-12] MEDS: DIVALPROEX SODIUM 250 MG TABLET.DR PO SCH (08:16)
[2019-12-12] MEDS: CARVEDILOL 6.25 MG TABLET PO SCH (08:16)
--- NOTE | 2019-12-12 08:20 | NUR ---
Social Work Discharge Note: Patient will be discharged to longterm facility to [facility] [address] [place] [address]; ([phone]) via Ambulance transportation at 12:00pm. Stoker Mechanic spoke with Conchis, Tunnel Form Placing Supervisor at [facility] ([phone]) who stated patient will be accepted at facility today. Patient is alert and oriented x1-2, and is not able to plan for self-care at this time, but is willing to accept care provided for her at the facility. Patient denies any suicidal or homicidal ideations. Patient is aware and agreeable with discharge plans. Patients ex-, Ca ([phone]) is informed. Patient will continue to follow-up with (psychiatrist) Dr. Tucker and (shredded filler machine wrapper layer) Dr. Warner. Patient presents with euthymic mood and congruent affect.
[2019-12-12] MEDS: FLUTICASONE/VILANTEROL 1 EACH BLST.W.DEV IH SCH (08:23)
--- NOTE | 2019-12-12 09:00 | NUR ---
RN NOTE- PT ALERT ORIENTED TO PERSON PLACE TIME ANTICIPATING DC MED COMPLIANT PO INTAKE GOOD DENIES ALL
[2019-12-12] MEDS ORDERED: POTASSIUM CHLORIDE 20 MEQ TAB.PRT.SR PO SCH (09:30)
--- NOTE | 2019-12-12 12:44 | NUR ---
RN DC NOTE- PT DC AT THIS [facility] TO [facility] VIA GURNEY AND AMBULANCE.PT ALERT ORIENTED TO PERSON PLACE TIME AND PURPOSE. DENIES SI HI AH VH. CALM DIRECTABLE MED COMPLIANT AT PRESENT. VALUABLES RETURNED AND SIGNED FOR. SKIN INTACT VS STABLE. ID [id number] REMOVED. ORDERS AND AFTERCARE REVIEWED W PT AND VERBALIZED UNDERSTANDING STATED. ESCORTED OFF UNIT BY OFFICE AUTOMATION CLERK
== END 2019-12-12 12:45 | DRG 885 ==
LOC: GPS 11-28 07:38
PROVIDERS: ADMIT Psychiatry & Neurology Psychosomatic Medicine; ATTEND Internal Medicine
DX: F25.0 Schizoaffective disorder, bipolar type (principal); I11.0 Hypertensive heart disease with heart failure; E44.0 Moderate protein-calorie malnutrition; F29 Unspecified psychosis not due to a substance or known physiological condition; F41.9 Anxiety disorder, unspecified; I25.10 Atherosclerotic heart disease of native coronary artery without angina pectoris; E66.9 Obesity, unspecified; J44.9 Chronic obstructive pulmonary disease, unspecified; I50.9 Heart failure, unspecified; Z73.6 Limitation of activities due to disability; M62.81 Muscle weakness (generalized); E88.09 Other disorders of plasma-protein metabolism, not elsewhere classified; Z68.38 Body mass index [BMI] 38.0-38.9, adult; Z86.19 Personal history of other infectious and parasitic diseases
CPT/HCPCS: 36415; 80053-TC; 80061-TC; 80164-TC; 82962-TC; 85025-TC; 87081-TC; J3490

== ENCOUNTER 2020-05-31 14:50 | Inpatient (IN) | payer MEDICARE, OTHER ==
[~2020-05-31] VITALS: Ht 172.7 cm; Wt 99.8 kg
[~2020-05-31 14:50] MED LIST: ALBU2.5V13 IH; CARV6.25 PO; FLUT10.62 IH; FLUT200B IH; QUET200T PO; QUET25TA PO; SPIR25TA6 PO; TEMA15CA PO; TORS20TA3 PO
[2020-05-31] MEDS ORDERED: SERT-438 PO (15:24)
[2020-05-31] MEDS ORDERED: RISP0.5T65 PO (15:24)
[2020-05-31] MEDS ORDERED: BUDE180A INH (15:24)
[2020-05-31 16:00] VITALS: BP 144/94
--- NOTE | 2020-05-31 16:05 | NUR ---
RN-CO: Admitted a 55 year old male from [facility] for being a danger to himself. Upon face to face interview, he is alert and oriented x4, calm and cooperative. His affect is blunted , speech is clear and soft. He said denied suicidal ideation nor plan at the time of admission. Per hold he has financial difficulties and he is tired of people helping him. He feels that he is burden to them. He also stated that he heard a voice telling him to ed his life. Patient also stated " I got scared to because I don't want to go to [facility], I am a Mandaeism." Dr Galan made aware of the admission and gave his admitting orders. Dr Ramirez was paged to reconcile home medications. Patient's rights hand book was given to les. His belongings were screened for contraband. His skin is clear and intact. I will continue to moniot him for safety and implement the nursing process. Advisement was read and given to cliff
--- NOTE | 2020-05-31 16:58 | NUR ---
RN-CO: DR PAYTON CUMMINS MADE AWARE OF THE NEW ADMIT AND ASKED TO RECONCILE HOME MEDS.
[2020-05-31] MEDS ORDERED: MAGNESIUM HYDROXIDE 30 ML UDC PO PRN (17:00)
[2020-05-31] MEDS ORDERED: ACETAMINOPHEN 325 MG TABLET PO PRN (17:00)
[2020-05-31] MEDS ORDERED: TEMAZEPAM 7.5 MG CAPSULE PO PRN (17:00)
[2020-05-31] MEDS ORDERED: BLOOD SUGAR DIAGNOSTIC 1 EACH STRIP IN ONE (17:00)
[2020-05-31] MEDS ORDERED: MAG HYDROX/AL HYDROX/SIMETH 30 ML UDC PO PRN (17:00)
[2020-05-31] MEDS ORDERED: ALBUTEROL FS 2.5 MG/0.5 ML VIAL.NEB IH PRN (18:00)
[2020-05-31] MEDS ORDERED: HOME MED MISCELLANEOUS XX SCH (18:00)
[2020-05-31 20:00] VITALS: BP 136/78
[2020-06-01 08:00] VITALS: BP 149/86
[2020-06-01 08:40] LABS: ALBUMIN 3.8 g/dL (3.4-5.0); BILIRUBIN,TOTAL 0.8 mg/dL (0.2-1.0); CALCIUM, SERUM 8.7 mg/dL (8.5-10.1); CREATININE 0.7 mg/dL (0.6-1.3); POTASSIUM 4.2 mmol/L (3.5-5.1); TOTAL PROTEIN, SERUM 7.2 g/dL (6.4-8.2)
[2020-06-01] MEDS: CARVEDILOL 6.25 MG TABLET PO SCH ×2 (09:16→17:53)
[2020-06-01] MEDS: SPIRONOLACTONE 25 MG TABLET PO SCH (09:16)
[2020-06-01] MEDS: LORAZEPAM 0.5 MG TABLET PO PRN (09:26)
--- NOTE | 2020-06-01 10:30 | NUR ---
Substance Abuse Intervention: MAKI conducted a substance abuse intervention with the pt due to his cannabis, methamphetamine, and cocaine use.
[2020-06-01 10:41] VITALS: BP 149/86
--- NOTE | 2020-06-01 10:50 | NUR ---
Initial Discharge Plan: Pt is currently homeless and resides in his RV. Per pt, he would like to be discharged [place] a [place] [facility]. SW will work with the MD and the pt regarding appropriate discharge planning. SW will form a safe and proper discharge.
[2020-06-01] MEDS: risperiDONE 1 MG TABLET PO SCH ×2 (14:09→17:53)
[2020-06-01] MEDS: QUETIAPINE FUMARATE 25 MG TABLET PO PRN (14:40)
[2020-06-01 16:12] VITALS: BP 120/68
[2020-06-01 19:57] VITALS: BP 115/73
[2020-06-01] MEDS: QUETIAPINE FUMARATE 100 MG TABLET PO SCH (21:12)
[2020-06-02 06:12] LABS: BASOPHILS % (AUTO) 0.8 % (0.0-2.0); EOSINOPHILS % (AUTO) 5.8 % (0.0-6.0); HEMATOCRIT 45 % (39-51); HEMOGLOBIN 15.5 g/dL (13.5-17.5); LYMPHOCYTES # (AUTO) 1.2 /CMM (0.8-4.8); LYMPHOCYTES % (AUTO) 26.2 % (20.0-44.0); MEAN CORPUSCULAR HGB CONC 35 g/dl (31.0-36.0); MEAN CORPUSCULAR VOLUME 85 fL (80-96); MONOCYTES # (AUTO) 0.4 /CMM (0.1-1.30); MONOCYTES % (AUTO) 8.8 % (2.0-12.0); NEUTROPHILS # (AUTO) 2.6 /CMM (1.8-8.9); NEUTROPHILS % (AUTO) 58.4 % (43.0-81.0); PLATELET COUNT (AUTO) 124 /CMM (150-450); RED BLOOD CELL COUNT(AUTO) 5.26 MIL/uL (4.5-6.0); WHITE BLOOD COUNT (AUTO) 4.5 K/uL (4.3-11.0)
--- NOTE | 2020-06-02 06:28 | NUR ---
RN NOTES: PATIENT RESTING IN ROOM. NO S/S OF DISTRESS. NO BEHAVIOR PROBLEMS NOTED AND NO CHANGE OF CONDITION NOTED, SAFETY PRECAUTION MAINTAINED, Q15 MINUTES SAFETY ROUND CONTINUED. ALL PATIENT CARE NEEDS MET AT THIS TIME. WILL CONTINUE TO MONITOR PATIENT FOR MOOD, BEHAVIOR AND SAFETY AND ENDORSE TO AM SHIFT.
[2020-06-02 07:27] LABS: ALBUMIN 3.7 g/dL (3.4-5.0); BILIRUBIN,TOTAL 0.6 mg/dL (0.2-1.0); CALCIUM, SERUM 8.5 mg/dL (8.5-10.1); CREATININE 0.8 mg/dL (0.6-1.3); POTASSIUM 4.2 mmol/L (3.5-5.1)
[2020-06-02 08:00] VITALS: BP 135/82
[2020-06-02] MEDS: risperiDONE 1 MG TABLET PO SCH ×3 (09:39→16:44)
[2020-06-02] MEDS: CARVEDILOL 6.25 MG TABLET PO SCH ×2 (09:40→16:45)
[2020-06-02] MEDS: SPIRONOLACTONE 25 MG TABLET PO SCH (09:40)
[2020-06-02] MEDS: QUETIAPINE FUMARATE 25 MG TABLET PO PRN (11:57)
--- NOTE | 2020-06-02 11:59 | NUR ---
pt requests seroquel states he feels edgy.
--- NOTE | 2020-06-02 15:40 | NUR ---
AFTERNOON RISPERDAL HELD VERY SLEEPY.
[2020-06-02 16:00] VITALS: BP 131/77
[2020-06-02] MEDS: LORAZEPAM 0.5 MG TABLET PO PRN (17:36)
--- NOTE | 2020-06-02 17:39 | NUR ---
given ativan for edginess.
[2020-06-02 20:56] VITALS: BP 114/74
[2020-06-02] MEDS: QUETIAPINE FUMARATE 100 MG TABLET PO SCH (22:32)
--- NOTE | 2020-06-03 06:52 | NUR ---
GPS RN CLOSING NOTES: PATIENT LAYING ON BED SLEEPING COMFORTABLY. SLEPT 9 HR THIS SHIFT. NO BEHAVIORAL ISSUES THIS SHIFT. MEDICATION COMPLIANT, NO PRN MEDS GIVEN THIS SHIFT. NO S/S OF DISTRESS. RESPIRATION EVEN AND UNLABORED WITH EQUAL RISE AND FALL OF THE CHEST ON ROOM AIR. SAFETY PRECAUTION MAINTAINED, BED IN LOWEST POSITION AND LOCKED. Q15 MINUTES SAFETY ROUND CONTINUED. ALL PATIENT CARE NEEDS MET ANTICIPATED. WILL CONTINUE TO MONITOR PATIENT FOR MOOD, BEHAVIOR AND SAFETY AND ENDORSE TO AM SHIFT.
[2020-06-03 08:00] VITALS: BP 137/82
[2020-06-03] MEDS: risperiDONE 1 MG TABLET PO SCH ×3 (08:00→17:14)
[2020-06-03] MEDS: CARVEDILOL 6.25 MG TABLET PO SCH ×2 (09:02→17:00)
[2020-06-03] MEDS: SPIRONOLACTONE 25 MG TABLET PO SCH (09:06)
[2020-06-03] MEDS: QUETIAPINE FUMARATE 25 MG TABLET PO SCH ×2 (12:34→17:14)
[2020-06-03 16:00] VITALS: BP 103/57
[2020-06-03] MEDS: LORAZEPAM 0.5 MG TABLET PO PRN (18:16)
--- NOTE | 2020-06-03 18:21 | NUR ---
PATIENT C/O ANXIETY MEDICATED WITH ATIVAN 0.5MG WILL CONTINUE TO MONITOR .
[2020-06-03] MEDS: QUETIAPINE FUMARATE 25 MG TABLET PO PRN (19:57)
[2020-06-03 20:00] VITALS: BP 131/77
[2020-06-03] MEDS: QUETIAPINE FUMARATE 100 MG TABLET PO SCH (21:37)
[2020-06-04 08:00] VITALS: BP 144/91
[2020-06-04] MEDS: risperiDONE 1 MG TABLET PO SCH ×3 (08:54→16:22)
[2020-06-04] MEDS: SPIRONOLACTONE 25 MG TABLET PO SCH (08:54)
[2020-06-04] MEDS: CARVEDILOL 6.25 MG TABLET PO SCH ×2 (08:55→16:19)
[2020-06-04] MEDS: QUETIAPINE FUMARATE 25 MG TABLET PO SCH ×3 (08:58→16:22)
[2020-06-04 16:00] VITALS: BP 122/52
[2020-06-04] MEDS: LORAZEPAM 0.5 MG TABLET PO PRN (17:33)
--- NOTE | 2020-06-04 17:33 | NUR ---
PATIENT C/O ANXIETY MEDICATED WITH ATIVAN 0.5MG WILL CONTINUE TO MONITOR .
--- NOTE | 2020-06-04 18:35 | NUR ---
GPS RN NOTES PATIENT RESTING IN BED
--- NOTE | 2020-06-04 19:30 | NUR ---
RN NOTES, PATIENT IN BED ASLEEP, GOT UP TO RESTROOM, WENT BACK TO BED, NO DISRUPTIVE BEHAVIOR NOTED, WILL CONTINUE TO MONITOR CLOSELY.
[2020-06-04 20:00] VITALS: BP 150/70
[2020-06-04] MEDS ORDERED: QUETIAPINE FUMARATE 100 MG TABLET PO SCH (22:00)
--- NOTE | 2020-06-05 06:45 | NUR ---
RN NOTES, PT IN ROOM AT THIS TIME, ISOLATED, NOT ENGAGED IN ANY INTERACTION DURING MY SHIFT, OTHERWISE NO SIGNIFICANT CHANGE IN CONDITION, WILL ENDORSE CONTINUITY OF CARE TO ONCOMING NURSE.
[2020-06-05 08:00] VITALS: BP 129/79
[2020-06-05] MEDS: risperiDONE 1 MG TABLET PO SCH ×3 (08:46→17:00)
[2020-06-05] MEDS: QUETIAPINE FUMARATE 25 MG TABLET PO SCH ×3 (08:46→17:00)
[2020-06-05] MEDS: SPIRONOLACTONE 25 MG TABLET PO SCH (08:46)
[2020-06-05] MEDS: CARVEDILOL 6.25 MG TABLET PO SCH ×2 (08:54→17:00)
--- NOTE | 2020-06-05 10:06 | NUR ---
Family Contact: SW called the pts ex , [place] ([phone]), and informed her that the pt is requesting a SNF at the time of discharge. Pts stated that she feels it would be better for the pt if he is back in the area of his home but acknowledged that he would not have much support here.
[2020-06-05] MEDS: QUETIAPINE FUMARATE 25 MG TABLET PO PRN ×2 (12:25→19:34)
[2020-06-05 16:00] VITALS: BP 124/68
--- NOTE | 2020-06-05 19:34 | NUR ---
NURSES NOTES: PATIENT IS REQUESTING FOR SEROQUEL MEDICATION AT THIS TIME. VITAL SIGNS CHECKED BP 104/73, HR-92 O2 SAT 96% ON ROOM AIR. SEROQUEL 50 MG GIVEN ORALLY PRN ORDER. WILL CONTINUE TO MONITOR PATIENT.
[2020-06-05 20:29] VITALS: BP 104/73
[2020-06-05 21:24] VITALS: BP 137/72
--- NOTE | 2020-06-05 21:26 | NUR ---
NURSES NOTES: PRIOR TO ADMINISTRATION OF SCHEDULED SEROQUEL 200 MG AT HS. BP RECHECKED 137/73, HR-61. SEROQUEL 200 MG GIVEN ORDERED. WILL CONTINUE TO MONITOR PATIENT'S MOOD AND BEHAVIOR.
[2020-06-05] MEDS ORDERED: QUETIAPINE FUMARATE 100 MG TABLET PO SCH (22:00)
[2020-06-06 08:00] VITALS: BP 113/72
[2020-06-06] MEDS: risperiDONE 1 MG TABLET PO SCH ×3 (08:11→17:06)
[2020-06-06] MEDS: QUETIAPINE FUMARATE 25 MG TABLET PO SCH ×3 (08:11→17:06)
[2020-06-06] MEDS: SPIRONOLACTONE 25 MG TABLET PO SCH (08:11)
[2020-06-06] MEDS: CARVEDILOL 6.25 MG TABLET PO SCH ×2 (08:11→17:07)
[2020-06-06] MEDS: LORAZEPAM 0.5 MG TABLET PO PRN ×2 (09:17→17:29)
--- NOTE | 2020-06-06 09:18 | NUR ---
RN-CO: ATIVAN 0.5 MG PO GIVEN FOR C/O ANXIETY.
--- NOTE | 2020-06-06 10:08 | NUR ---
Individual Intervention: SW met with the pt in the social media strategist office and discussed SNF placement, what that entails, and termite control technician discharge planning. Pt states that he was thinking about going back towards [place] but he realized that discharge plan did not work for him last time so he decided he will try the SNF for a longer period of time.
--- NOTE | 2020-06-06 10:09 | NUR ---
SNF Referral: MAKI faxed a referral to [facility] with attn to Tiara to the fax number: [phone].
--- NOTE | 2020-06-06 10:46 | NUR ---
SNF Contact: MILLY ([phone]) from [facility] contacted the SW and stated that the pt was accepted to their facility.
[2020-06-06] MEDS: QUETIAPINE FUMARATE 25 MG TABLET PO PRN ×2 (13:46→19:44)
--- NOTE | 2020-06-06 13:46 | NUR ---
RN-CO: SEROQUEL 50 MG GIVEN FOR C/O SEVERE RESTLESSNESS.
[2020-06-06 16:00] VITALS: BP 130/79
--- NOTE | 2020-06-06 17:30 | NUR ---
RN-CO: ATIVAN PO GIVEN FOR MODERATE ANXIETY.
--- NOTE | 2020-06-06 19:30 | NUR ---
GPS RN NOTE, RECEIVED PATIENT AWAKE AND IN BED, NO S/S OR COMPLAINTS OF PAIN AT THIS TIME. PATIENT IS DISPLAYING NO S/S OF APPARENT DISTRESS AT THIS TIME. PATIENT BREATHING IS UNLABORED WITH EQUAL RISE AND FALL OF THE CHEST. PATIENT IS ALERT AND ORIENTED X 3 ON ROOM AIR WITH A SPO2 98%. PATIENT IS COMPLIANT WITH MEDICATIONS, ANXIOUS AT TIMES, DEPRESSED, NEEDY, AND COOPERATIVE. PATIENT DENIES SUICIDAL AND HOMICIDAL IDEATIONS AT THIS TIME. PATIENT ASSISTED WITH TURNING AND REPOSITIONING Q2HR AND PRN FOR COMFORT AND CIRCULATION. PATIENT HAS NO NEEDS AT THIS TIME. PATIENT EDUCATED ON THE USE OF THE CALL LEWIS. PATIENT BED SIDE RAILS UP X 2 FOR SAFETY. PATIENT BED IS LOCKED, LOW, WITH BED ALARM ON. WILL CONTINUE TO MONITOR THIS PATIENT Q15 MINUTES WITH THE HELP OF STAFF TO MAINTAIN SAFETY.
--- NOTE | 2020-06-06 19:44 | NUR ---
GPS RN NOTE, PATIENT HAS A COMPLAINT OF FEELING ANXIOUS AND IS REQUESTING SEROQUEL AT THIS TIME. PATIENT VITAL SIGNS ARE STABLE. GAVE SEROQUEL 50 MG PO Q6HR PRN ORDERED. WILL REASSESS FOR ANXIETY AND I WILL CONTINUE TO MONITOR THIS PATIENT.
[2020-06-06 20:05] VITALS: BP 153/83
[2020-06-06] MEDS ORDERED: QUETIAPINE FUMARATE 100 MG TABLET PO SCH (22:00)
--- NOTE | 2020-06-07 06:08 | NUR ---
GPS RN NOTE, PATIENT IS, DELUSIONAL, AGITATED, AGGRESSIVE, YELLING, AND STRIKING OUT AT STAFF. LESS RESTRICTIVE MEASURES ATTEMPTED IE DIVERSION, 1 TO 1 INTERACTION, AND REORIENTATION WAS TRIED WITH NO POSITIVE EFFECT. PAGED DR LOZANO AND INFORMED HIM OF MY FINDINGS. DR LOZANO ORDERED ZYPREXA 10MG IM ONCE. PATIENT ASSISTED TO OBSERVATION AND GIVEN AFOREMENTIONED MEDICATION IN HER RIGHT VENTROGLUTEAL WITH THE HELP OF STAFF AND SECURITY. PATIENT TOLERATE PROCEDURE WELL. ALL ORDERS NOTED AND CARRIED OUT WILL CONTINUE TO MONITOR THE PATIENT. Addendum: 06/07/20 at 0708 by CASSIDY RICO RN DISREGARD WRONG PATIENT.
[2020-06-07 08:00] VITALS: BP 136/75
[2020-06-07] MEDS: risperiDONE 1 MG TABLET PO SCH ×3 (08:01→16:33)
[2020-06-07] MEDS: SPIRONOLACTONE 25 MG TABLET PO SCH (08:01)
[2020-06-07] MEDS: CARVEDILOL 6.25 MG TABLET PO SCH ×2 (08:02→16:34)
[2020-06-07] MEDS: QUETIAPINE FUMARATE 25 MG TABLET PO SCH ×3 (08:02→16:37)
[2020-06-07] MEDS: QUETIAPINE FUMARATE 25 MG TABLET PO PRN ×2 (12:47→20:00)
[2020-06-07] MEDS: LORAZEPAM 0.5 MG TABLET PO PRN (14:41)
--- NOTE | 2020-06-07 14:41 | NUR ---
RN-CO: ATIVAN 0.5 MG PO WAS REQUESTED FOR C/O ANXIETY.
--- NOTE | 2020-06-07 15:09 | NUR ---
Individual Intervention: MAKI spoke to the pt in the activities room and the pt stated that he had changed his mind and that he would like to be discharged back to the [facility]. He stated that his ex can come pick him up. SW stated that he has the right to determine his discharge plan and then stated that the MD will inform him when he is going to be released as it is her decision to determine if the pt is stable.
--- NOTE | 2020-06-07 15:12 | NUR ---
Probable Cause Hearing: Pts [id number] hold was upheld for grave disability.
--- NOTE | 2020-06-07 19:30 | NUR ---
GPS RN NOTE, RECEIVED PATIENT AWAKE AND IN BED, NO S/S OR COMPLAINTS OF PAIN AT THIS TIME. PATIENT IS DISPLAYING NO S/S OF APPARENT DISTRESS AT THIS TIME. PATIENT BREATHING IS UNLABORED WITH EQUAL RISE AND FALL OF THE CHEST. PATIENT IS ALERT AND ORIENTED X 3 ON ROOM AIR WITH A SPO2 96%. PATIENT IS COMPLIANT WITH MEDICATIONS, ANXIOUS AT TIMES, DEPRESSED, NEEDY, AND COOPERATIVE. PATIENT DENIES SUICIDAL AND HOMICIDAL IDEATIONS AT THIS TIME. PATIENT ASSISTED WITH TURNING AND REPOSITIONING Q2HR AND PRN FOR COMFORT AND CIRCULATION. PATIENT HAS NO NEEDS AT THIS TIME. PATIENT EDUCATED ON THE USE OF THE CALL LEWIS. PATIENT BED SIDE RAILS UP X 2 FOR SAFETY. PATIENT BED IS LOCKED, LOW, WITH BED ALARM ON. WILL CONTINUE TO MONITOR THIS PATIENT Q15 MINUTES WITH THE HELP OF STAFF TO MAINTAIN SAFETY.
[2020-06-07 20:46] VITALS: BP 121/73
[2020-06-07] MEDS: QUETIAPINE FUMARATE 100 MG TABLET PO SCH (21:30)
[2020-06-08 08:00] VITALS: BP 143/92
[2020-06-08] MEDS: SPIRONOLACTONE 25 MG TABLET PO SCH (08:48)
[2020-06-08] MEDS: risperiDONE 1 MG TABLET PO SCH ×3 (08:48→16:04)
[2020-06-08] MEDS: QUETIAPINE FUMARATE 25 MG TABLET PO SCH ×3 (08:48→16:04)
[2020-06-08] MEDS: CARVEDILOL 6.25 MG TABLET PO SCH ×2 (08:49→16:04)
[2020-06-08] MEDS: LORAZEPAM 0.5 MG TABLET PO PRN ×2 (13:04→19:42)
--- NOTE | 2020-06-08 13:10 | NUR ---
GPS RN NOTES PATIENT ANXIOUS REQUESTING FOR PRN MEDICATION. PRN ATIVAN ADMINISTERED.
[2020-06-08 16:00] VITALS: BP 135/76
[2020-06-08 20:14] VITALS: BP 124/72
[2020-06-08] MEDS: QUETIAPINE FUMARATE 100 MG TABLET PO SCH (21:32)
--- NOTE | 2020-06-09 06:04 | NUR ---
GPS RN CLOSING NOTES: PATIENT LAYING ON BED SLEEPING COMFORTABLY. SLEPT 8 HR THIS SHIFT. NO BEHAVIORAL ISSUES THIS SHIFT. MEDICATION COMPLIANT. NO S/S OF DISTRESS. RESPIRATION EVEN AND UNLABORED WITH EQUAL RISE AND FALL OF THE CHEST ON ROOM AIR. SAFETY PRECAUTION MAINTAINED, BED IN LOWEST POSITION AND LOCKED. Q15 MINUTES SAFETY ROUND CONTINUED. ALL PATIENT CARE NEEDS MET ANTICIPATED. WILL CONTINUE TO MONITOR PATIENT FOR MOOD, BEHAVIOR AND SAFETY AND ENDORSE TO AM SHIFT.
[2020-06-09 08:00] VITALS: BP 151/78
[2020-06-09] MEDS: QUETIAPINE FUMARATE 25 MG TABLET PO SCH ×3 (10:01→17:01)
[2020-06-09] MEDS: CARVEDILOL 6.25 MG TABLET PO SCH ×2 (10:01→17:01)
[2020-06-09] MEDS: SPIRONOLACTONE 25 MG TABLET PO SCH (10:02)
[2020-06-09] MEDS: risperiDONE 1 MG TABLET PO SCH ×3 (10:02→17:01)
[2020-06-09] MEDS: LORAZEPAM 0.5 MG TABLET PO PRN ×2 (11:27→17:58)
--- NOTE | 2020-06-09 11:27 | NUR ---
given ativan 0.5 mg po.
[2020-06-09 16:00] VITALS: BP 149/68
--- NOTE | 2020-06-09 18:08 | NUR ---
GIVEN ATIVAN FOR NERVOUSNESS.
[2020-06-09 20:31] VITALS: BP 146/77
[2020-06-09] MEDS: QUETIAPINE FUMARATE 100 MG TABLET PO SCH (21:05)
[2020-06-10 08:00] VITALS: BP 151/93
[2020-06-10] MEDS: SPIRONOLACTONE 25 MG TABLET PO SCH (08:44)
[2020-06-10] MEDS: risperiDONE 1 MG TABLET PO SCH ×3 (08:44→16:12)
[2020-06-10] MEDS: QUETIAPINE FUMARATE 25 MG TABLET PO SCH ×3 (08:44→16:12)
[2020-06-10] MEDS: LORAZEPAM 0.5 MG TABLET PO PRN ×2 (08:44→17:01)
[2020-06-10] MEDS: CARVEDILOL 6.25 MG TABLET PO SCH ×2 (08:45→16:12)
--- NOTE | 2020-06-10 09:15 | NUR ---
RN-CO: ATIVAN GIVEN FOR C/O ANXIETY.
[2020-06-10 16:00] VITALS: BP 115/71
--- NOTE | 2020-06-10 17:02 | NUR ---
RN-CO: PATIENT REQUESTED FOR ATIVAN PO FOR RESTLESSNESS. Addendum: 06/10/20 at 1707 by JAMES ADAMS RN-CO: ATIVAN 0.5 MG GIVEN.
[2020-06-10 19:47] VITALS: BP 137/87
[2020-06-10] MEDS: QUETIAPINE FUMARATE 100 MG TABLET PO SCH (21:06)
[2020-06-11 08:00] VITALS: BP 123/69
[2020-06-11] MEDS: CARVEDILOL 6.25 MG TABLET PO SCH ×2 (08:17→16:28)
[2020-06-11] MEDS: SPIRONOLACTONE 25 MG TABLET PO SCH (08:17)
[2020-06-11] MEDS: QUETIAPINE FUMARATE 25 MG TABLET PO SCH ×3 (08:17→16:29)
[2020-06-11] MEDS: risperiDONE 1 MG TABLET PO SCH ×3 (08:18→16:28)
--- NOTE | 2020-06-11 09:00 | NUR ---
RN NOTE- PT ALERT ORIENTED CALM DENIES SI HI AH VH FLAT AFFECT MINIMAL EYE CONTACT INITIATES QUERY HOWEVER MED COMPLIANT DISHEVELED
[2020-06-11] MEDS: LORAZEPAM 0.5 MG TABLET PO PRN (10:43)
--- NOTE | 2020-06-11 10:43 | NUR ---
RN NOTE- C/O ANXIETY ATIVAN 0.5 MG GIVEN
[2020-06-11] MEDS: QUETIAPINE FUMARATE 25 MG TABLET PO PRN (13:44)
--- NOTE | 2020-06-11 13:45 | NUR ---
RN NOTE- C/O ONGOING RESTLESSNESS AND ANXIETY. REQUESTING SEROQUEL PRN SEROQUEL 50 MG GIVEN
--- NOTE | 2020-06-11 14:40 | NUR ---
Individual Intervention: SW met with the pt at bedside and he expressed that he heard what the MD had to say and what she recommends as his discharge plan but he states that he still prefers to be discharged to [place] so that he can continue living in his . SW stated that she will inform the MD and the SW will plan his discharge accordingly.
[2020-06-11 16:00] VITALS: BP 129/75
[2020-06-11 19:55] VITALS: BP 125/64
[2020-06-11] MEDS: QUETIAPINE FUMARATE 100 MG TABLET PO SCH (22:00)
--- NOTE | 2020-06-12 06:26 | NUR ---
GPS RN CLOSING NOTES: PATIENT CURRENTLY LAYING ON BED SLEEPING COMFORTABLY. SLEPT 8 HR THIS SHIFT. NO BEHAVIORAL ISSUES THIS SHIFT. MEDICATION COMPLIANT. NO S/S OF DISTRESS. RESPIRATION EVEN AND UNLABORED WITH EQUAL RISE AND FALL OF THE CHEST ON ROOM AIR. SAFETY PRECAUTION MAINTAINED, BED IN LOWEST POSITION AND LOCKED. Q15 MINUTES SAFETY ROUND CONTINUED. ALL PATIENT CARE NEEDS MET ANTICIPATED. WILL CONTINUE TO MONITOR PATIENT FOR MOOD, BEHAVIOR AND SAFETY AND ENDORSE TO AM SHIFT.
[2020-06-12 08:00] VITALS: BP 132/78
[2020-06-12] MEDS: SPIRONOLACTONE 25 MG TABLET PO SCH (08:08)
[2020-06-12] MEDS: risperiDONE 1 MG TABLET PO SCH ×3 (08:08→16:03)
[2020-06-12] MEDS: CARVEDILOL 6.25 MG TABLET PO SCH ×2 (08:09→16:03)
[2020-06-12] MEDS ORDERED: QUETIAPINE FUMARATE 25 MG TABLET PO SCH ×2 (09:00→13:00)
--- NOTE | 2020-06-12 09:00 | NUR ---
RN NOTE- PT ALERT ORIENTED CALM DENIES SI HI AH VH FLAT AFFECT MINIMAL EYE CONTACT INITIATES QUERY HOWEVER MED COMPLIANT DISHEVELED
[2020-06-12] MEDS ORDERED: QUETIAPINE FUMARATE 25 MG TABLET PO PRN (12:30)
[2020-06-12] MEDS: QUETIAPINE FUMARATE 25 MG TABLET PO SCH ×2 (13:29→16:04)
[2020-06-12 16:00] VITALS: BP 138/92
[2020-06-12 20:53] VITALS: BP 114/69
[2020-06-12] MEDS: QUETIAPINE FUMARATE 100 MG TABLET PO SCH (21:00)
[2020-06-13 08:00] VITALS: BP 131/95
[2020-06-13] MEDS: QUETIAPINE FUMARATE 25 MG TABLET PO SCH ×2 (09:42→12:26)
[2020-06-13] MEDS: risperiDONE 1 MG TABLET PO SCH ×3 (09:42→16:51)
[2020-06-13] MEDS: SPIRONOLACTONE 25 MG TABLET PO SCH (09:42)
[2020-06-13] MEDS: CARVEDILOL 6.25 MG TABLET PO SCH ×2 (09:43→16:51)
--- NOTE | 2020-06-13 10:01 | NUR ---
[facility] Contact: MAKI called [facility] ([phone]) and spoke to Syed who stated that the pt has services with them and missed his last appointment with his psychiatrist, Dr. Kalee Colmenares. MAKI stated that he is hospitalized inpatient and that was why he missed the appointment and asked to reschedule for next week. MAKI made an appointment for the pt for 06/21/20 at 1:30PM. MAKI will fax updated notes to [phone].
[2020-06-13 16:00] VITALS: BP 117/60
[2020-06-13] MEDS: QUETIAPINE FUMARATE 100 MG TABLET PO SCH ×2 (16:52→21:02)
[2020-06-13 20:49] VITALS: BP 120/80
--- NOTE | 2020-06-14 00:28 | NUR ---
NURSES NOTES: PATIENT REPORTED TO THE CLERICAL TRANSCRIBER STATING THAT HE IS NOT ABLE TO SLEEP. REQUESTED FOR SEROQUEL MEDICATION. BP RECHECKED 121/79, HR-79 RR-18 O2 SAT-94%. SEROQUEL 50 MG GIVEN PRN ORDER. WILL MONITOR PATIENT AND EFFICACY OF MEDICATION.
[2020-06-14 08:00] VITALS: BP 110/67
[2020-06-14] MEDS: risperiDONE 1 MG TABLET PO SCH ×3 (09:06→16:02)
[2020-06-14] MEDS: QUETIAPINE FUMARATE 25 MG TABLET PO SCH ×2 (09:06→13:02)
[2020-06-14] MEDS: SPIRONOLACTONE 25 MG TABLET PO SCH (09:06)
[2020-06-14] MEDS: CARVEDILOL 6.25 MG TABLET PO SCH ×2 (09:07→16:02)
--- NOTE | 2020-06-14 14:20 | NUR ---
Discharge Note: Pt will be discharged to [facility] ([facility]) located at [address] [place] [id number]; ([phone]). Pt will be transported via [facility] (Trip #[id number]) at 5:15PM. MAKI does not have anyone that he allowed the SW to inform about the pts discharge. Upon discharge, the pt appears to be in a euthymic mood and presented with a congruent affect. Pt appears to be alert and oriented x4 (time, place, self and situation). Pt denies both suicidal and homicidal ideation as well as auditory and visual hallucinations. Pt appears to be ambulatory with an unsteady gait. Pt appears to be well groomed and appropriately dressed. MAKI provided patient with the 2019 [facility] Jail Program list. MAKI provided patient with a copy of the [facility] homeless directory which provides information on locations for hot meals, sack lunches, food pantries, and showers. MAKI provided an additional list of mental health clinics: [facility][1] [address] [place] [address] ([phone]); [facility] [address] [place] [address] ([phone]); a list of medical clinics; [facility] [address], [place]. [place], ; [facility] [address], [facility] [address], [place]. MAKI Provided [facility] [address] [place] [address]: ([phone]). Patient was provided with a brief substance abuse intervention and referred to the following substance abuse programs: [facility] Substance Abuse Self-helpline ([phone]); [facility] [address] [place] [address] ([phone]); [facility] [address] [address] ([phone]); [facility] ([phone]); [facility] ([phone]); [facility] ([phone]); [facility] ([phone]). Pt will continue to be under the care of psychiatrist, Dr. Tucker, located at located at [address] [place] [address], [place] [address]; . Pt will be under the care of crutcher helper, Dr. Warner, located at [address] [place] [address]; . Pts homeless waiver, choice of vendor form, and multidisciplinary exit care form were done, printed, signed, and given to the patient.
--- NOTE | 2020-06-14 14:43 | NUR ---
RN-CO: DISCHARGE PAPERS AND EXIT CARE WERE DISCUSSED TO THE PATIENT. OFFERED NICOTINE PATCH WHICH PT AGREED. DR VENEGAS CONTINUED IT. PATIENT VERBALIZED UNDERSTANDING AND HE SIGNED THE DISCHARGE INSTRUCTIONS.
--- NOTE | 2020-06-14 14:43 | NUR ---
RN-CO:RN-CO: Dr Tucker gave an order to discontinue hold and discharge patient to SNF, noted. PATIENT IS ALERT AND ORIENTED X 4, ABLE TO MAKE NEEDS KNOWN, SELFCARE. DENIED SUICIDAL AND HOMICIDAL IDEATION. DENIED AUDITORY AND VISUAL HALLUCINATION. NO ACUTE DISTRESS NOTED. MEDICALLY CLEARED FOR DISCHARGE BY DR VENEGAS. IVIS SUTHERLAND (EX ) MADE AWARE OF HIS DISCHARGE. [phone].
--- NOTE | 2020-06-14 15:02 | NUR ---
RN-CO: SKIN IS CLEAR AND INTACT UPON DISCHARGE.
--- NOTE | 2020-06-14 15:51 | NUR ---
RN-CO: Report was given to "Sakshi" VAIBHAV in [facility].
[2020-06-14 16:00] VITALS: BP 139/67
[2020-06-14 16:02] VITALS: BP 139/67
[2020-06-14] MEDS: QUETIAPINE FUMARATE 100 MG TABLET PO SCH (16:02)
--- NOTE | 2020-06-14 17:26 | NUR ---
RN-CO: PATIENT WAS PICKED UP [facility], VALUABLES GIVEN BACK TO HIM.
== END 2020-06-14 17:27 | DRG 885 ==
LOC: GPS 14:50
PROVIDERS: ADMIT Psychiatry & Neurology Psychosomatic Medicine; ATTEND Nurse Practitioner Acute Care
DX: F25.0 Schizoaffective disorder, bipolar type (principal); F32.9 Major depressive disorder, single episode, unspecified; E66.9 Obesity, unspecified; J45.909 Unspecified asthma, uncomplicated; G47.00 Insomnia, unspecified; Z59.0 Homelessness; I10 Essential (primary) hypertension; Z73.6 Limitation of activities due to disability; Z68.33 Body mass index [BMI] 33.0-33.9, adult; F29 Unspecified psychosis not due to a substance or known physiological condition; Z20.822 Contact with and (suspected) exposure to COVID-19
CPT/HCPCS: 36415; 80053-TC; 80061-TC; 82962-TC; 85025-TC; 87081-TC